=== PATIENT | female | born 1975 | race Caucasian/White ===

== ENCOUNTER 2016-07-11 14:36 | Emergency (ER) | payer MEDICAID ==
[~2016-07-11] VITALS: Ht 157.5 cm; Wt 77.0 kg
[~2016-07-11 14:36] MED LIST: ACET500C5 PO
[2016-07-11 14:40] VITALS: Ht 157.5 cm; Wt 77.0 kg
--- NOTE | 2016-07-11 16:27 | ERD ---
ER Documentation Chief Complaint Date/Time DATE: 07/11/16 TIME: 16:23 Chief Complaint AP X 6 DAYS HPI 41-year-old female with a history of fibroids presenting with left lower quadrant pain for about 6 days. The pain is intermittent, stabbing, radiating to her back, 8 out of 10, associated with intermittent vaginal bleeding. The blood comes out in clots. She recently had her period but this does not seem like her normal period. She endorses associated subjective fevers and chills. She has had nausea and nonbloody vomiting within the past few days but not today. She denies any associated dysuria or hematuria. She has been constipated for 2 days as well but is passing gas. She is monogamous. She was seen about 4 years ago at [facility] for similar complaints and was diagnosed with fibroids. She has not seen a physician for this since. She has no primary care doctor or courtesy booth cashier. ROS All systems reviewed and are negative except as per history of present illness. Medications Home Meds Active Scripts Doxycycline Hyclate* (Doxycycline Hyclate*) 100 Mg Tablet.dr, 100 MG PO BID for 7 Days, #14 TAB Prov:RENE SORTO MD 07/11/16 Ferrous Sulfate* (Ferrous Sulfate*) 325 Mg Tabec, 325 MG PO DAILY, #30 TAB Prov:RENE SORTO MD 07/11/16 Ibuprofen* (Motrin*) 600 Mg Tab, 600 MG PO Q6H Y for PAIN AND OR ELEVATED TEMP, #30 TAB Prov:RENE SORTO MD 07/11/16 Acetaminophen* (Tylophen*) 500 Mg Capsule, 1 CAP PO Q6H Y for PAIN AND OR ELEVATED TEMP, #20 CAP Prov:KENNETH ABRAMS NP 11/24/14 Allergies Allergies: Coded Allergies: No Known Allergy (Unverified , 07/11/16) PMhx/Soc Medical and Surgical Hx: pt denies Medical Hx History of Surgery: Yes (caesarian section) Anesthesia Reaction: No Hx Neurological Disorder: No Hx Respiratory Disorders: No Hx Cardiac Disorders: No Hx Psychiatric Problems: No Hx Miscellaneous Medical Probl: No Hx Alcohol Use: No Hx Substance Use: No Hx Tobacco Use: No Smoking Status: Never smoker FmHx Family History: No diabetes Physical Exam Vitals Vital Signs Date Time Temp Pulse Resp B/P Pulse Ox O2 Delivery O2 Flow Rate FiO2 07/11/16 18:50 98.7 75 20 132/75 99 Room Air 07/11/16 14:40 99.9 70 18 127/70 99 Physical Exam Const: Well-appearing, well-nourished, no distress, nontoxic Head: Atraumatic Eyes: Normal Conjunctiva ENT: Normal External Ears, Nose and Mouth. Neck: Full range of motion..~ No meningismus. Resp: Clear to auscultation bilaterally Cardio: Regular rate and rhythm, no murmurs Abd: Soft, suprapubic and left lower quadrant mild tenderness to palpation, no rebound, localized guarding, non distended. No palpable masses but exam limited due to body habitus. No peritoneal signs. normal bowel sounds Pelvic Exam: Animal Impersonator present Abdomen: Nontender External Genitalia: Normal Skin Speculum: Normal vaginal mucosa, bloody, nonpurulent cervical discharge, no active bleeding Bimanual: No adnexal masses, however there is left adnexal tenderness, no CMT Skin: No petechiae or rashes Back: No midline or flank tenderness Ext: No cyanosis, or edema Neur: Awake and alert Psych: Normal Mood and Affect Result Diagram: 07/11/16 1720 07/11/16 1720 Results 24 hrs Laboratory Tests Test 07/11/16 17:20 White Blood Count 11.010^3/ul Red Blood Count 3.8810^6/ul Hemoglobin 9.1g/dl Hematocrit 29.5% Mean Corpuscular Volume 76.0fl Mean Corpuscular Hemoglobin 23.5pg Mean Corpuscular Hemoglobin Concent 30.8g/dl Red Cell Distribution Width 16.5% Platelet Count 55974^3/UL Mean Platelet Volume 9.0fl Neutrophils % 62.9% Lymphocytes % 28.8% Monocytes % 4.8% Eosinophils % 0.9% Basophils % 0.2% Nucleated Red Blood Cells % 0.0/100WBC Neutrophils # 6.910^3/ul Lymphocytes # 3.210^3/ul Monocytes # 0.510^3/ul Eosinophils # 0.110^3/ul Basophils # 0.010^3/ul Nucleated Red Blood Cells # 0.010^3/ul Urine Color LT. YELLOW Urine Clarity CLEAR Urine pH 6.5 Urine Specific [place] <=1.005 Urine Ketones NEGATIVE Urine Nitrite NEGATIVE Urine Bilirubin NEGATIVE Urine Urobilinogen 0.2 E.U./dL Urine Leukocyte Esterase NEGATIVE Urine Microscopic RBC 10-25/HPF Urine Microscopic WBC NONE SEEN/HPF Urine Epithelial Cells OCCASIONAL Urine Hemoglobin 3+ Urine Glucose NEGATIVE% Urine Total Protein NEGATIVE Sodium Level 139mmol/L Potassium Level 3.7mmol/L Chloride Level 106mmol/L Carbon Dioxide Level 27mmol/L Anion Gap 10 Blood Urea Nitrogen 12mg/dl Creatinine 0.63mg/dl Glucose Level 96mg/dl Calcium Level 9.1mg/dl Serum HCG, Qualitative NEGATIVE Current Medications Medications (Trade) Dose Ordered Sig/Boyd Route PRN Reason Start Time Stop Time Status Last Admin Dose Admin Ketorolac Tromethamine (Toradol) 60 mg ONCE STAT IM 07/11/16 17:45 07/11/16 17:47 DC 07/11/16 18:04 Ceftriaxone Sodium (Rocephin) 250 mg ONCE ONCE IM 07/11/16 19:00 07/11/16 19:01 07/11/16 18:37 Procedures/MDM EMERGENT LABS AND DIAGNOSTIC STUDIES: Lab Results above were reviewed and interpreted by me. CBC showed evidence of mild leukocytosis, thrombocytosis, and anemia [id number] urine negative Urinalysis without evidence of infection Radiology Results as interpreted by Radiology below were reviewed by Jeannette Sorto MD: Ultrasound pelvic: IMPRESSION: 1. Tubular, serpiginous cystic structure in the left adnexa, suspicious for hydrosalpinx. Follow-up ultrasound in 6 or 12 weeks is recommended. TOUR CONDUCTOR consultation may be warranted. 2. Small amount of free fluid within the cul-de-sac, which may be physiologic. .Bahman Barakat MD, MD Date Time Electronically viewed and signed by .Bahman Barakat MD, MD on 07/11/2016 17:35 Initial Nursing notes reviewed. Previous Medical Records requested via the Electronic Health Record. EMERGENCY DEPARTMENT COURSE / MEDICAL DECISION MAKING: Patient is presenting with left adnexal pain. She is low risk for PID. Vitals are stable but she has a low-grade fever. She is well appearing on exam and nontoxic. Ultrasound of the pelvis was done and showed evidence of hydrosalpinx on the left. test was negative. There is no evidence of PID on my exam, however given her hydrosalpinx which may be infectious in etiology, Rocephin IM was given and she was given a prescription for doxycycline. I have a low suspicion for an acute abdomen. I explained to her the importance of following up with her courtesy booth cashier for further evaluation and treatment of her hydrosalpinx. Her pain was treated with Toradol IM. Patient states that she understands what she needs to do and the plan. Labs were notable for anemia. Prescription for iron supplementation, ibuprofen, and doxycycline were given. A list of community clinics and information for [facility] Patient's blood pressure was elevated (>120/80) but appears stable without evidence of hypertensive emergency or urgency. The patient was counseled about the risks of hypertension and urged to pursue outpatient monitoring and therapy within a week with their primary care physician. Departure Diagnosis: Primary Impression: Hydrosalpinx Additional Impressions: Pelvic pain Anemia Anemia type: iron deficiency Iron deficiency anemia type: unspecified iron deficiency Qualified Code: D50.9 - Iron deficiency anemia, unspecified iron deficiency anemia type Vaginal bleeding Condition: Stable RENE SORTO MD Jul 11, 2016 16:27
[2016-07-11 17:33] LABS: ADD SCAN DIFF NO
--- NOTE | 2016-07-11 17:35 | RADRPT ---
PROCEDURE: US Pelvis CLINICAL INDICATION: Pelvic pain. TECHNIQUE: Sonographic evaluation of the pelvis was performed utilizing both transabdominal and tr ansvaginal technique. Curved array transabdominal transducer technique as well as a high frequency endovaginal probe was utilized. Images were reviewed on the high-resolution PACS workstation. COMPARISON: CT of the abdomen and pelvis dated 11/24/2014. FINDINGS: The uterus measures 7.23 cm x 4.72 cm x 6.09 cm in dimension. The uterus is retroflexed. The en dometrium measures 0.29 cm in thickness. The right ovary measures 2.46 cm x 1.55 cm x 2.01 cm in dimension. There is a simple 1.1 cm right ov ani cyst. The left ovary measures 2.41 cm x 1.66 cm x 1.7 cm in dimension. There is normal flow demonstrated within the ovaries. There is a tubular, serpiginous cystic structure in the left adnex a measuring 4.4 x 1.8 x 4.6 cm. There is a small amount of free fluid within the cul-de-sac. IMPRESSION: 1. Tubular, serpiginous cystic structure in the left adnexa, suspicious for hydrosalpinx. Follow-up ultrasound in 6 or 12 weeks is recommended. POTATO PEELING MACHINE OPERATOR consultation may be warranted. 2. Small amount of free fluid within the cul-de-sac, which may be physiologic. RPTAT: QQ .Bahman Barakat MD, MD Date Time Electronically viewed and signed by .Bahman Barakat MD, MD on 07/11/2016 17:35 .P/
[2016-07-11 17:36] LABS: BASOPHILS % 0.2 % (0.0-2.0); EOSINOPHILS # 0.1 10^3/ul (0.0-0.5); EOSINOPHILS % 0.9 % (0.0-7.0); HEMATOCRIT 29.5 % (37.0-47.0); HEMOGLOBIN 9.1 g/dl (12.0-16.0); LYMPHOCYTES # 3.2 10^3/ul (0.8-2.9); LYMPHOCYTES % 28.8 % (15.0-51.0); MEAN CORPUSCULAR HEMOGLOBIN 23.5 pg (29.0-33.0); MEAN CORPUSCULAR HGB CONC 30.8 g/dl (32.0-37.0); MONOCYTE # 0.5 10^3/ul (0.3-0.9); MONOCYTES % 4.8 % (0.0-11.0); NEUTROPHIL # 6.9 10^3/ul (1.6-7.5); NEUTROPHILS % 62.9 % (39.0-77.0); PLATELET COUNT 485 10^3/UL (140-415); RED BLOOD COUNT 3.88 10^6/ul (4.20-5.40); RED CELL DISTRIBUTION WIDTH 16.5 % (11.5-14.5)
[2016-07-11 17:44] LABS: ADD UMIC YES; URINE BILIRUBIN (Dip) NEGATIVE (NEGATIVE); URINE BLOOD (Dip) 3+ (NEGATIVE); URINE COLOR LT. YELLOW (YELLOW); URINE GLUCOSE (Dip) NEGATIVE (NEGATIVE); URINE KETONES (Dip) NEGATIVE (NEGATIVE); URINE LEUKOCYTE ESTERASE (Dip) NEGATIVE (NEGATIVE); URINE NITRITE (Dip) NEGATIVE (NEGATIVE); URINE TOTAL PROTEIN (Dip) NEGATIVE (NEGATIVE); URINE UROBILINOGEN (Dip) 0.2 E.U./dL (0.1-1.0)
[2016-07-11] MEDS ORDERED: KETOROLAC 60 MG INJ IM STA (17:45)
[2016-07-11 17:54] LABS: CALCIUM 9.1 mg/dl (8.4-10.2); CREATININE 0.63 mg/dl (0.44-1.00); POTASSIUM 3.7 mmol/L (3.5-5.1)
[2016-07-11] MEDS ORDERED: IBUP-1542 PO (18:30)
[2016-07-11] MEDS ORDERED: FER325 PO (18:30)
[2016-07-11] MEDS ORDERED: DOXY100T20 PO (18:32)
[2016-07-11 18:50] VITALS: BP 132/75; PULSE 75; RESP 20; TEMP 98.7
[2016-07-11] MEDS ORDERED: CEFTRIAXONE 250 MG INJ IM ONE (19:00)
== END 2016-07-11 18:57 | disposition home or self-care (01) ==
LOC: FTE 14:36
DX: N70.11 Chronic salpingitis (principal); R10.2 Pelvic and perineal pain; D50.9 Iron deficiency anemia, unspecified; N93.9 Abnormal uterine and vaginal bleeding, unspecified
CPT/HCPCS: 76830; 76856; 80048; 81001; 84703; 85025; 87086; 87591; 96372; J0696; J1885; Z7502; 81003

== ENCOUNTER 2017-01-23 15:11 | Emergency (ER) | payer MEDICAID ==
[~2017-01-23] VITALS: Ht 170.2 cm; Wt 85.3 kg
[~2017-01-23 15:11] MED LIST changes: +DOXY100T20 PO; +FER325 PO; +IBUP-1542 PO
[2017-01-23 15:14] VITALS: Ht 170.2 cm; Wt 85.3 kg
[2017-01-23] MEDS ORDERED: KETOROLAC 60 MG INJ IM STA (15:50)
--- NOTE | 2017-01-23 16:53 | RADRPT ---
PROCEDURE: XR Chest. CLINICAL INDICATION: shoulder pain TECHNIQUE: Frontal chest x-ray was obtained. COMPARISON: None. FINDINGS: Heart is not enlarged. Mediastinum is not widened. No hilar masses seen. Lungs are clear of any infi ltrates. There is no effusion or pneumothorax. IMPRESSION: No evidence for active cardiopulmonary disease. .Eloy Hubbard MD, MD Date Time Electronically viewed and signed by .Eloy Hubbard MD, MD on 01/23/2017 16:53 .A/
--- NOTE | 2017-01-23 16:54 | RADRPT ---
PROCEDURE: XR right shoulder. CLINICAL INDICATION: shoulder pain TECHNIQUE: AP, Internal and external rotation views of the right shoulder were performed. COMPARISON: None. FINDINGS: There is normal osseous mineralization and alignment. No acute fracture or osseous lesion is identified. There are normal joints without evidence of arthritis or dislocation. The soft tissues are unremarkable. IMPRESSION: Unremarkable right shoulder. .Eloy Hubbard MD, MD Date Time Electronically viewed and signed by .Eloy Hubbard MD, MD on 01/23/2017 16:53 .A/
[2017-01-23] MEDS ORDERED: IBUP-1542 PO (17:09)
[2017-01-23] MEDS ORDERED: TRAM50TA2 PO (17:09)
--- NOTE | 2017-01-23 17:24 | ERD ---
ER Documentation Chief Complaint Chief Complaint Complains of right pain shoulder pain that radiates to the back HPI This is a 41-year-old female presents to the ER complaining of shoulder pain that started 6 months ago. 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 Patient states that shoulder pain radiates from her neck down to her shoulder through her chest, back and down her arm. She denies any numbness or tingling of her extremity. Patient takes ibuprofen at home which helps with the pain, however pain is more severe since last night. Pain is sharp. Patient denies any fevers or chills. She denies any new trauma. ROS 12 point review of systems was done, all negative except per HPI. Medications Home Meds Active Scripts Ibuprofen* (Motrin*) 600 Mg Tab, 600 MG PO Q6, #30 TAB Prov:MOMO WHITT 01/23/17 Tramadol HCl (Tramadol HCl) 50 Mg Tablet, 50 MG PO Q4 Y for PAIN, #20 TAB Prov:MOMO WHITT 01/23/17 Doxycycline Hyclate* (Doxycycline Hyclate*) 100 Mg Tablet.dr, 100 MG PO BID for 7 Days, #14 TAB Prov:RENE RANDHAWA MD 07/11/16 Ferrous Sulfate* (Ferrous Sulfate*) 325 Mg Tabec, 325 MG PO DAILY, #30 TAB Prov:RENE RANDHAWA MD 07/11/16 Ibuprofen* (Motrin*) 600 Mg Tab, 600 MG PO Q6H Y for PAIN AND OR ELEVATED TEMP, #30 TAB Prov:RENE RANDHAWA MD 07/11/16 Acetaminophen* (Tylophen*) 500 Mg Capsule, 1 CAP PO Q6H Y for PAIN AND OR ELEVATED TEMP, #20 CAP Prov:KENNETH ABRAMS NP 11/24/14 Allergies Allergies: Coded Allergies: No Known Allergy (Unverified , 07/11/16) PMhx/Soc History of Surgery: Yes (caesarian section) Anesthesia Reaction: No Hx Neurological Disorder: No Hx Respiratory Disorders: No Hx Cardiac Disorders: No Hx Psychiatric Problems: No Hx Miscellaneous Medical Probl: No Hx Alcohol Use: No Hx Substance Use: No Hx Tobacco Use: No Physical Exam Vitals Vital Signs Date Time Temp Pulse Resp B/P Pulse Ox O2 Delivery O2 Flow Rate FiO2 01/23/17 15:14 99.3 76 20 154/84 96 Physical Exam GENERAL: The patient is well developed and appropriate for usual state of health , in no apparent distress. HEENT: Atraumatic. CHEST: Clear to auscultation bilaterally. There are no rales, wheezes or rhonchi. HEART: Regular rate and rhythm. No murmurs, clicks, rubs or gallops. EXTREMITIES: The right shoulder is without obvious asymmetry or deformity when compared to the left shoulder. No surface trauma, echymosis or crepitus. No bony deformity or prominence over the humeral head. No erythema, warmth, swelling. NT to palpation of the bicipital groove or soft tissues. NT to palpation of the muscles of the sternocleidomastoid, pectorals, biceps/triceps, deltoid, trapezius, rhomboid, latissimus dorsi, rotator cuff. Has painful and limited range of motion of the area, she has trouble extending shoulder, abducting shoulder and with internal rotation. Positive drop arm test. No axillary tenderness or lymphadenopathy. Normal sensation over the deltoid and ability to flex arm at elbow indicated intact axillary nerve function. Distal motor and neurovascular status intact. Patient does not have any pain to the elbow on palpation or with ROM. Tender to palpation along the right chest wall. She has nonpainful and full range of motion of her right elbow and right wrist. NEURO: Alert and oriented SKIN: The skin is warm and dry. Results 24 hrs Current Medications Medications (Trade) Dose Ordered Sig/Boyd Route PRN Reason Start Time Stop Time Status Last Admin Dose Admin Ketorolac Tromethamine (Toradol) 60 mg ONCE STAT IM 01/23/17 15:50 01/23/17 15:51 DC 01/23/17 16:42 Procedures/MDM EKG 76bpm no ST elevation or t wave inversion. Read by Dr. Morrison Differential Diagnosis: AC separation, rotator cuff tear, bursitis, tendonitis, anterior/posterior shoulder dislocation, c-spine injury, peripheral nerve injury , AAA/TAD. Patient likely has a rotator cuff injury, she does not have any fractures or dislocations. Patient is neurovascularly intact, she is afebrile and well-appearing. Suspicion for infectious etiology is low. Patient did not have any tenderness to her C-spine, she was only tender to the right trapezius muscle, imaging of the C-spine is not indicated at this time. Nexus criteria assessment: MLTTP: [None] Intoxication: [None] Distracting Injury: [None] Focal Neurodeficit: [None] AMS: [None] [Patient does not meet criteria for cervical imaging.] Susppicion For acute cardiac etiology is low. She will be sent home with tramadol with ibuprofen, she was advised to follow- up with an orthopedic doctor as soon as possible. Patient is to follow-up with her primary care doctor within 1-2 days return to ER sooner if symptoms worsen. Departure Diagnosis: Primary Impression: Shoulder pain Condition: Stable Patient Instructions: Shoulder Pain (Uncertain Cause) Additional Instructions: Llame al doctor MAANA y kandice pedro NEO PARA DENTRO DE 1-2 AQUINO.Dgale a la secretaria que nosotros le instruimos hacer esta neo.Avise o llame si overton condicin se empeora antes de la neo. Regresa aqui si peor o no mejor. TIENE QUE IR CON UN ORTOPEDISTA! MOMO WHITT Jan 23, 2017 17:24
== END 2017-01-23 17:31 | disposition home or self-care (01) ==
LOC: FTE 15:11
DX: M25.511 Pain in right shoulder (principal)
CPT/HCPCS: 71010; 73030; 96372; J1885; Z7502